=== PATIENT | female | born 1950 ===

== ENCOUNTER 2018-03-31 09:59 | Outpatient (CLI) | payer MEDICARE | END 2018-03-31 10:00 | disposition home or self-care (01) | LOC: C.CARD 09:59 ==

== ENCOUNTER 2018-06-20 13:23 | Outpatient (CLI) | payer MEDICARE | END 2018-06-20 13:24 | disposition home or self-care (01) | LOC: C.RADH 13:23 | DX: Z01.818 Encounter for other preprocedural examination (principal) ==